=== PATIENT | male | born 1955 | race Caucasian/White ===

== ENCOUNTER 2022-10-22 11:00 | Outpatient (RCR) | payer MEDICARE, SELFPAY ==
[2022-07-25 11:33] VITALS: PULSE 80
== END 2022-10-22 13:49 | disposition home or self-care (01) ==
LOC: ANHCPREHAB 11:00
PROVIDERS: PCP Family Medicine; Visit Provider Internal Medicine Cardiovascular Disease
DX: Z95.5 Presence of coronary angioplasty implant and graft (principal)
CPT/HCPCS: 93798

== ENCOUNTER 2023-01-17 19:24 | Emergency (ER) | payer MEDICARE, SELFPAY ==
--- NOTE | 2023-01-17 19:31 | ED.GENADULT ---
HPI - General Adult General Chief complaint: Upper Respiratory Infection Stated complaint: Headache,Congestion Time Seen by Provider: 01/17/23 19:31 Source: patient Mode of arrival: ambulatory Limitations: no limitations History of Present Illness HPI narrative: 67-year-old male patient presents to [facility] with complaints of sinus pressure and left pain that started Thursday. Patient states he tried to do a nasal lavage to help with the sinus congestion and states that he thinks he got some water into left ear and now having severe ear pain. Patient states he has been taking some Flonase because he is due to have surgery to his right nasal canal in the next couple of weeks. Denies taking any antihistamines. Denies taking any Tylenol, ibuprofen or any other [id number] medication to help with symptoms. Patient does have history of high blood pressure. Related Data Home Medications Medication Instructions Recorded Confirmed aspirin 81 mg capsule 81 mg PO DAILY 07/25/22 01/17/23 clopidogrel 75 mg tablet (Plavix) 75 mg PO DAILY 07/25/22 01/17/23 diltiazem HCl 240 mg 240 mg PO DAILY 07/25/22 01/17/23 capsule,extended release 24 hr, controlled hydralazine 25 mg tablet 50 mg PO BID 07/25/22 01/17/23 propafenone 225 mg 225 mg PO DAILY 07/25/22 01/17/23 capsule,extended release 12 hr (Rythmol SR) potassium chloride 10 mEq 10 meq PO DAILY 01/17/23 01/17/23 tablet,extended release Allergies Allergy/AdvReac Type Severity Reaction Status Date / Time metoprolol AdvReac Intermediate Irritable Verified 01/17/23 19:30 lisinopril AdvReac Intermediate Cough Uncoded 01/17/23 19:30 Review of Systems Review of Systems: CONSTITUTIONAL: Denies fever, chills, or sweats. EYES: Denies visual changes, redness, or discharge. ENT: Denies rhinorrhea, positive congestion, sore throat, positive left otalgia. CARDIOVASCULAR: Denies chest pain, palpitations, or edema. RESPIRATORY: Denies cough or dyspnea. GASTROINTESTINAL: Denies abdominal pain, nausea, vomiting, or diarrhea. GENITOURINARY: Denies dysuria or hematuria. SKIN: Denies rash or itching. MUSCULOSKELETAL: Denies back pain, joint pain, or myalgia. NEUROLOGIC: Positive headache, denies numbness, or weakness. PSYCHIATRIC: Denies anxiety or depression. [facility] Past Medical History Medical History Atrial fibrillation Chronic sinusitis Essential (primary) hypertension Metabolic syndrome Mixed hyperlipidemia Olecranon bursitis, left elbow Family History Family History Father Family history of hypercholesterolemia Hypertension Family history of cardiovascular disease Family history of lymphoma Social History Social History Smoking status: Never smoker Lack of Transportation: No Lack of Food: Never True Current Housing: I Have Housing Concerned About Future Housing: No Difficulty Paying Gas/Electric Bills: No Difficulty Paying for Meds: No Currently Unemployed: No Education: High School Diploma/GED Difficulty w/ Childcare or Family Care: No Comments At the time of my signature I agree with nursing past medical history, surgical, social, and family history. There is no relevant family history pertinent to the presenting complaint. Exam Narrative: GENERAL: Well-appearing, well-nourished, and in no acute distress. HEAD: Normocephalic, atraumatic. tenderness noted to frontal and maxillary sinuses on palpation EYES: PERRLA and EOMI. ENT: Nares with erythema edema noted to the right near, no rhinorrhea or epistaxis. Mucous membranes moist. posterior pharynx with no erythema, tonsillar enlargement, exudates or lesions present. The left TM is very erythemic and bloodshot. NECK: Supple. No lymphadenopathy CHEST: Clear to auscultation. No respiratory distress. HEART: Regular rat
[2023-01-17 19:36] VITALS: BP 173/83; PULSE 97; RESP 16; TEMP 37.4; O2SAT 98
== END 2023-01-17 19:54 | disposition home or self-care (01) ==
PROVIDERS: Emergency Provider Nurse Practitioner Family; PCP Family Medicine
DX: H66.92 Otitis media, unspecified, left ear (principal); J32.1 Chronic frontal sinusitis; I48.91 Unspecified atrial fibrillation; I10 Essential (primary) hypertension; E78.2 Mixed hyperlipidemia; Z79.82 Long term (current) use of aspirin
CPT/HCPCS: 99213; G0463

== ENCOUNTER 2023-09-17 13:21 | Outpatient (CLI) | payer MEDICARE, SELFPAY ==
--- NOTE | ~2023-09-17 | XR_ITS ---
Clinical Indication: Dyspnea on exertion PA and lateral views of the chest: Comparison: 02/25/2011 Findings: Probable linear scarring noted left lung base. The lungs are otherwise clear, without evide nce of focal consolidation or pleural effusion. Cardiomediastinal silhouette is within normal limits . Bones and soft tissues are unremarkable. Impression: Probable linear scarring left lung base, otherwise clear lungs. Reviewed, dictated and finalized at location [facility] Impression: Probable linear scarring left lung base, otherwise clear lungs.
== END 2023-09-17 13:22 | disposition home or self-care (01) ==
PROVIDERS: Visit Provider Internal Medicine Cardiovascular Disease
DX: R06.09 Other forms of dyspnea (principal)
CPT/HCPCS: 71046

== ENCOUNTER 2024-01-04 11:54 | Outpatient (CLI) | payer MEDICARE, SELFPAY ==
[2024-01-04 13:19] LABS: Basophils Percent Auto 0.4 % (0.2-1.2); Eosinophils Absolute Auto 0.1 K/mm3 (0-0.3); Eosinophils Percent Auto 0.9 % (0-4.4); Hematocrit 43.1 % (42.0-52.0); Hemoglobin 14.7 g/dL (14.0-18.0); Immature Granulocyte Absolute 0.03 K/mm3 (0.00-0.031); Immature Granulocyte Percent A 0.4 % (0-0.5); Lymphocytes Absolute Auto 1.86 K/mm3 (0.9-3.2); Mean Corpuscular HGB Conc 34.1 g/dl (32-36); Mean Corpuscular Hemoglobin 31.3 pg (26-34); Mean Corpuscular Volume 91.9 fl (80-100); Mean Platelet Volume 11.4 fl (7.4-10.4); Monocytes Absolute Auto 0.7 K/mm3 (0.1-0.6); Monocytes Percent Auto 10.3 % (2.6-8.5); Neutrophils Absolute Auto 4.2 K/mm3 (1.3-6.7); Platelet Count Result 211 k/mm3 (150-375); Red Blood Count 4.69 M/mm3 (4.6-6.20); Red Cell Distribution Width 13.8 % (11.5-14.5); White Blood Count 6.9 K/mm3 (4.5-10.0)
[2024-01-04 13:44] LABS: Alanine Aminotransferase 22 U/L (6-50); Albumin Level 4.7 g/dL (3.5-5.1); Alkaline Phosphatase 54 U/L (38-126); Anion Gap 9 mmol/L (4-12); Aspartate Amino Transferase 73 U/L (17-59); Bilirubin,Total 0.5 mg/dL (0.2-1.3); Blood Urea Nitrogen 18 mg/dL (9-20); Calcium 8.9 mg/dL (8.4-10.2); Carbon Dioxide 28 mmol/L (22-30); Chloride 106 mmol/L (98-107); Cholesterol 181 mg/dL (0-200); Estimated Glomerular Filt Rate > 60; Glucose 107 mg/dL (65-110); HDL Direct 33 mg/dL; Potassium 3.5 mmol/L (3.4-5.0); Sodium 143 mmol/L (137-145); Triglycerides 122 mg/dL (<150)
[2024-01-04 14:00] LABS: LDL Cholesterol Direct 113 mg/dL
[2024-01-04 14:03] LABS: Creatinine Urine 104.7 mg/dL
[2024-01-04 14:12] LABS: MALB Creatinine Ratio 32.1 mg/g (0-30); Microalbumin Urine Random 33.6 mg/L (0-16.7)
[2024-01-04 14:16] LABS: Prostate Specific Antigen 1.9 ng/mL (< OR = 4.0)
[2024-01-08 12:29] LABS: Apolipoprotein B 88 mg/dL
== END 2024-01-04 11:55 | disposition home or self-care (01) ==
LOC: ANHGOSHLAB 11:56
PROVIDERS: PCP Internal Medicine; Visit Provider Internal Medicine
DX: Z12.5 Encounter for screening for malignant neoplasm of prostate (principal); I48.91 Unspecified atrial fibrillation; I25.10 Atherosclerotic heart disease of native coronary artery without angina pectoris; I10 Essential (primary) hypertension; E78.2 Mixed hyperlipidemia
CPT/HCPCS: 36415; 80053; 80061; 82043; 82172; 84153; 84443; 85025; G0103